=== PATIENT | male | born 1990 | race Hispanic/Latino ===

== ENCOUNTER 2018-07-10 01:15 | Emergency (ER) | payer OTHER ==
[2018-07-10 01:27] VITALS: BP 132/87
== END 2018-07-10 01:20 | disposition left against medical advice (07) ==
LOC: ED 01:15
DX: Z04.89 Encounter for examination and observation for other specified reasons (principal); Z53.21 Procedure and treatment not carried out due to patient leaving prior to being seen by health care provider